=== PATIENT | male | born 1995 | race Caucasian/White ===

== ENCOUNTER 2016-11-23 13:08 | Emergency (ER) | payer MEDICAID, OTHER ==
[2016-11-21] MEDS: OLANZAPINE 5 MG TABLET PO SCH (17:10)
[2016-11-21] MEDS: FLUOXETINE HCL 20 MG CAPSULE PO SCH (17:10)
[2016-11-23] MEDS ORDERED: DIPH/PERTUSS(ACELL)/TETANUS VAC/PF 0.5 ML SYR (>=10YO) IM ONE (13:19)
[2016-11-23] MEDS ORDERED: NORMAL SALINE 1000 ML 1,000 ML IV PRN (13:20)
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
[2016-11-23] MEDS ORDERED: LIDOCAINE 1%/EPINEPHRINE INJ 20 ML VIAL INJ ONE (13:36)
[2016-11-23 14:16] LABS: ABSOLUTE EOSINOPHILS # (AUTO) 0.1 10^3/uL (0.0-0.6); ABSOLUTE LYMPHOCYTES (AUTO) 1.4 10^3/uL (0.5-4.7); ABSOLUTE MONOCYTES (AUTO) 0.5 10^3/uL (0.1-1.4); ABSOLUTE NEUT (AUTO) 3.8 10^3/uL (1.7-8.2); BASOPHILS % (AUTO) 0.2 % (0-2); EOSINOPHILS % (AUTO) 1.1 % (0-6); HEMATOCRIT 42.3 % (37.9-51.0); HEMOGLOBIN 14.8 g/dL (13.5-17.0); HGB HCT DIFFERENCE 2.1; LYMPHOCYTES % (AUTO) 24.7 % (13-45); MEAN CORPUSCULAR HGB CONC 35.1 g/dL (32.0-36.0); MEAN CORPUSCULAR VOLUME 88 fl (80-97); MONOCYTES % (AUTO) 8.6 % (3-13); RED BLOOD COUNT 4.78 10^6/uL (4.35-5.55); RED CELL DISTRIBUTION WIDTH 12.3 % (11.5-14.0); SEGMENTED NEUTROPHILS % (AUTO) 65.4 % (42-78); WHITE BLOOD COUNT 5.8 10^3/uL (4.0-10.5)
[2016-11-23 14:41] LABS: ALANINE AMINOTRANSFERASE 28 U/L (21-72); ALKALINE PHOSPHATASE 75 U/L (38-126); ANION GAP 10 (5-19); ASPARTATE AMINO TRANSFERASE 20 U/L (17-59); BILIRUBIN,TOTAL 0.5 mg/dL (0.2-1.3); BLOOD UREA NITROGEN 8 mg/dL (7-20); CALCIUM 9.5 mg/dL (8.4-10.2); CARBON DIOXIDE 28 mmol/L (22-30); CHLORIDE 105 mmol/L (98-107); CREATININE RESULT 0.85 mg/dL (0.52-1.25); GLUCOSE 95 mg/dL (75-110); POTASSIUM 4.2 mmol/L (3.6-5.0); SODIUM 142.6 mmol/L (137-145); TOTAL PROTEIN 6.9 g/dL (6.3-8.2)
[2016-11-23] MEDS ORDERED: FENTANYL CITRATE INJ/PF 100 MCG/2 ML AMPUL IV ONE (14:44)
[2016-11-23] MEDS ORDERED: FENTANYL CITRATE INJ/PF 100 MCG/2 ML AMPUL ONE (14:47)
[2016-11-23] MEDS ORDERED: CEFAZOLIN 1 GM/D5W RTU 50 ML IV ONE (15:36)
[2016-11-23 16:58] LABS: ABSOLUTE MONOCYTES (AUTO) 0.5 10^3/uL (0.1-1.4); ABSOLUTE NEUT (AUTO) 8.9 10^3/uL (1.7-8.2); BASOPHILS % (AUTO) 0.2 % (0-2); EOSINOPHILS % (AUTO) 0.1 % (0-6); HEMATOCRIT 38.7 % (37.9-51.0); HEMOGLOBIN 13.3 g/dL (13.5-17.0); HGB HCT DIFFERENCE 1.2; LYMPHOCYTES % (AUTO) 9.9 % (13-45); MEAN CORPUSCULAR HEMOGLOBIN 30.7 pg (27.0-33.4); MEAN CORPUSCULAR HGB CONC 34.4 g/dL (32.0-36.0); MEAN CORPUSCULAR VOLUME 89 fl (80-97); MONOCYTES % (AUTO) 4.4 % (3-13); RED BLOOD COUNT 4.34 10^6/uL (4.35-5.55); RED CELL DISTRIBUTION WIDTH 12.3 % (11.5-14.0); SEGMENTED NEUTROPHILS % (AUTO) 85.4 % (42-78); WHITE BLOOD COUNT 10.4 10^3/uL (4.0-10.5)
[2016-11-23 17:18] LABS: ALANINE AMINOTRANSFERASE 27 U/L (21-72); ALBUMIN 3.5 g/dL (3.5-5.0); ALCOHOL < 10 mg/dL (NONE DETECTED); ALKALINE PHOSPHATASE 66 U/L (38-126); ANION GAP 12 (5-19); ASPARTATE AMINO TRANSFERASE 16 U/L (17-59); BILIRUBIN,TOTAL 0.4 mg/dL (0.2-1.3); BLOOD UREA NITROGEN 7 mg/dL (7-20); CALCIUM 8.9 mg/dL (8.4-10.2); CARBON DIOXIDE 24 mmol/L (22-30); CHLORIDE 105 mmol/L (98-107); CREATININE RESULT 0.86 mg/dL (0.52-1.25); GLUCOSE 100 mg/dL (75-110); POTASSIUM 4.2 mmol/L (3.6-5.0); SODIUM 140.8 mmol/L (137-145)
[2016-11-23 17:20] LABS: APPEARANCE,URINE CLEAR; BILIRUBIN,URINE NEGATIVE (NEGATIVE); GLUCOSE, URINE NEGATIVE (NEGATIVE); KETONES,URINE NEGATIVE (NEGATIVE); LEUKOCYTE ESTERASE,URINE NEGATIVE (NEGATIVE); NITRITE,URINE NEGATIVE (NEGATIVE); PROTEIN,URINE NEGATIVE (NEGATIVE); URINE SPECIFIC GRAVITY 1.011; UROBILINOGEN,URINE NEGATIVE mg/dL (<2.0)
[2016-11-23 17:33] LABS: URINE BARBITURATES SCREEN NEGATIVE; URINE METHADONE SCREEN NEGATIVE; URINE PHENCYCLIDINE SCREEN NEGATIVE
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
[2016-11-23] MEDS ORDERED: DIVALPROEX SODIUM 500 MG TAB.SR.24H PO SCH (19:00)
[2016-11-23] MEDS: FLUOXETINE HCL 20 MG CAPSULE PO SCH (22:00)
[2016-11-23] MEDS: OLANZAPINE 5 MG TABLET PO SCH (22:00)
[2016-11-23] MEDS: BENZTROPINE MESYLATE 1 MG TABLET PO SCH (22:00)
--- NOTE | 2016-11-24 15:55 | EKG REPORT ---
SEVERITY:- ABNORMAL ECG - SINUS RHYTHM PROBABLE LEFT VENTRICULAR HYPERTROPHY LATERAL Q WAVES, PROBABLY NORMAL VARIATION ST ELEV, PROBABLE NORMAL EARLY REPOL PATTERN : Confirmed by: Iesha Seals 24-Nov-2016 15:55:01
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
--- NOTE | 2016-11-24 16:47 | ER Document Report ---
Doctor's Note Notes: 11/24/16 16:42 Rounds: Patient interviewed and chart reviewed. Vital signs all stable. Labs unremarkable. Laceration right forearm closed by Dr. Foster. Patient does not express any suicidal ideation at this time. Patient is believed to be stable for discharge or transfer. mental health assesed patient and does not feel he needs further care in the emergency department or as an inpatient at another [facility]. He is being discharged to follow up with Dr. Rhodes. Tosin Daigle MD 11/24/16 18:24 Patient was felt to be ready for discharge, but when Mother arrived to take him , he became difficult and agitated again. We determined that the patient had only received one Zyprexa 5 gm last night and none today and that he had not received any Depakote ordered BID that had been ordered last evening. Those meds
[2016-11-24] MEDS: BENZTROPINE MESYLATE 1 MG TABLET PO SCH (21:58)
[2016-11-25] MEDS: DIVALPROEX SODIUM 500 MG TAB.SR.24H PO SCH ×2 (07:51→18:01)
[2016-11-25] MEDS: OLANZAPINE 5 MG TABLET PO SCH ×2 (07:51→18:01)
--- NOTE | 2016-11-25 09:05 | PSYCHOLOGICAL NOTE ---
Psych Note - Psych Note Psych Note: Patient clinician conducted check in with patient patient stated that he feels "so-so." Patient identified his emotion yesterday when his mother came to pick him up stating "I got mad." He was unable to verbalize why. Patient states he still has that feeling inside him. Diagnosis: R/O 292.9 (F12.99) Unspecified Schizophrenia and other Psychotic Disorder 299.00 (F84.0) Autism Spectrum Disorder by History Impression\\plan: Patient is recommended to continue under IVC. Patient has not made significant improvement in disposition and is considered a risk to himself and others.
--- NOTE | 2016-11-25 10:32 | PDOC CONSULTATION ---
History of Present Illness Admission Date/PCP: ELDON GARRETT Patient complains of: Laceration and bleeding of the right forearm after punching a glass door. History of Present Illness: 21-year-old gentleman with psychiatric issues who punched a glass door and inadvertently cut his ulnar aspect of his mid forearm. He cut it deep into the muscle, some bleeding. At the ER to decompress the dressing and coagulation by general surgeon. General surgeon noted muscle injury and potential laceration of the tendon. I'll then to the ER to evaluate the laceration and help with the active bleeding of the forearm. They were concerned for an ulnar artery injury. Patient complains of paresthesias of the fifth and fourth digit. Has decrease motion second to pain because states he can wiggle his digits. Past Medical History Musculoskeltal Medical History: Reports: Arthritis - Juvenile rheumatoid Psychiatric Medical History: Reports: Attention Deficit Hyperactivity Disorder, Bipolar Disorder Past Surgical History Past Surgical History: Reports: Other - Eye surgery Social History Smoking Status: Never Smoker - Advance Directive Resuscitation Status: Full Code Family History Family History: Reviewed & Not Pertinent Parental Family History Reviewed: Yes Children Family History Reviewed: Yes Sibling(s) Family History Reviewed.: Yes Medication/Allergy Home Medications: Aripiprazole [Abilify 10 mg Tablet] 10 mg PO DAILY 05/25/15 Clonidine HCl [Catapres 0.1 mg Tablet] 0.1 mg PO Q8 05/25/15 Guanfacine HCl [Guanfacine HCl ER] 2 mg PO BID 05/25/15 Methylphenidate HCl [Methylphenidate ER] 36 mg PO DAILY 05/25/15 Methylphenidate HCl [Methylphenidate ER] 54 mg PO DAILY 05/25/15 Benztropine Mesylate [Benztropine Mesylate 2 mg Tablet] 2 mg PO BID #14 tab 03/06 Citalopram Hydrobromide [Celexa 40 mg Tablet] 1 tab PO DAILY #7 tablet 09/24/16 Divalproex Sodium [Depakote] 250 mg PO BID #30 tablet. 09/24/16 Risperidone [Risperdal 1 mg Tablet] 1 mg PO Q12 #14 tablet 09/24/16 Trazodone HCl 100 mg PO QHS #7 tablet 09/24/16 Benztropine Mesylate [Benztropine Mesylate 2 mg Tablet] 2 mg PO BID #60 tab Citalopram Hydrobromide [Celexa 40 mg Tablet] 1 tab PO DAILY #30 tablet Divalproex Sodium 250 mg PO BID #60 tablet. 10/08/16 Risperidone 1 mg PO Q12 #60 tablet 10/08/16 Trazodone HCl 100 mg PO QHS #30 tablet 10/08/16 Benztropine Mesylate [Cogentin 1 mg Tablet] 2 tab PO DAILY 11/23/16 Cephalexin Monohydrate [Keflex 500 mg Capsule] 500 mg PO QID #40 capsule Citalopram Hydrobromide [Celexa 40 mg Tablet] 1 tab PO DAILY 11/23/16 Divalproex Sodium [Depakote ER 250 mg Tablet] 11/23/16 Allergies/Adverse Reactions: No Known Allergies Allergy (Verified 09/24/16 12:14) Physical Exam Vital Signs: Temp Pulse Resp BP Pulse Ox 36.5 C 82 18 105/64 99 11/25/16 07:52 11/25/16 07:52 11/25/16 07:52 11/25/16 07:52 11/25/16 07:52 Intake & Output 11/24/16 11/25/16 11/26/16 06:59 06:59 06:59 Weight 83.915 kg General appearance: PRESENT: no acute distress Eye exam: PRESENT: EOMI. ABSENT: conjunctival injection, nystagmus Neurological exam: PRESENT: alert, awake, oriented to person, oriented to place , oriented to time Psychiatric exam: PRESENT: anxious Adult Front & Back Image: 1 - About a 2-3 cm transverse laceration on the midforearm on the ulnar aspect. We'll to visualize the cut tendon with muscle belly which I believe is the flexor carpi ulnaris. Do not see any further penetration or deep injury. Knee active bleeding was controlled by Marilyn and Suraj curz at this moment. He has paresthesias of the ulnar distribution of the fifth and fourth digits but able to flex and extend and abductor and the duct the digits. He has some sensation although altered. He has good capillary refill and good radial pulse. He had a dopplerable ulnar pulse done by the ER. Weak wrist flexion but still intact. Ulnar deviation is limited. Results Laboratory Results: 11/23/16 16:45 11/23/16 16:45 Assessment & Plan - Diagnosis (1) Laceration of forearm with tendon involvement Qualifiers: Encounter type: initial encounter Laterality: right Qualified Code(s): S51.811A - Laceration without foreign body of right forearm, initial encounter; S56.921A - Laceration of unspecified muscles, fascia and tendons at forearm level, right arm, initial encounter Is this a current diagnosis for this admission?: Yes (2) Tendon laceration Is this a current diagnosis for this admission?: Yes - Plan Summary Plan Summary: 21-year-old gentleman who after punching a glass door had a laceration to his right volar ulnar aspect forearm. Bleeding was controlled and was likely a branch of the muscle belly but not ulnar artery itself. Hemostasis has been obtained. Wound was irrigated and approximated by general surgeon. Likely patient has a flexor carpi ulnaris muscle/tendon injury. Patient to have a compressive dressing and follow-up in the office for potential tendon repair or exploration of the wound. I told him that its likely at the musculotendinous junction and very likely to be repaired although we can discuss options and the office. Patient most likely will be admitted for psychiatric reasons and they can call me for any questions of the wound the meantime. All the nerve may have been partially injured and although functioning. Hopefully once the swelling was down and if redo and expiration we can evaluate for the nerve.
[2016-11-25] MEDS ORDERED: FLUOXETINE HCL 20 MG CAPSULE PO ONE (11:50)
--- NOTE | 2016-11-25 17:01 | ER Document Report ---
Doctor's Note Notes: 11/25/16 16:56 Rounds: Chart reviewed and patient interviewed. Patient remains in the emergency department, trying to get his mental issues under control with medications. He has Depakote and Zyprexa ordered, but apparently, according to his MAR, he has not been getting these medications as prescribed. He does seem to be calmer today. Patient obviously did not get discharged yesterday as was planned. He will likely need to be discharged on his current regimen of Zyprexa and Depakote along with Cogentin with outpatient follow-up. Regarding the patient's arm wound, from the notes in the chart, the patient was seen earlier today by the orthopedic physician fire prevention engineer, Dr. Cooper. From his note, it appears that the wound is stable and that he is going to follow-up in the office with them to determine if any further surgical care is necessary for this wound that apparently includes muscle. From reading his note, it appears that the patient needs to be discharged to follow-up in the office in a week. Tosin Daigle M.D.
[2016-11-26] MEDS: OLANZAPINE 5 MG TABLET PO SCH (09:16)
[2016-11-26] MEDS: DIVALPROEX SODIUM 500 MG TAB.SR.24H PO SCH (09:17)
[2016-11-26] MEDS ORDERED: FLUOXETINE HCL 20 MG CAPSULE PO SCH (10:00)
[2016-11-26 13:10] VITALS: BP 126/76
== END 2016-11-26 13:18 | disposition home or self-care (01) ==
LOC: ER 13:08
DX: S56.922A Laceration of unspecified muscles, fascia and tendons at forearm level, left arm, initial encounter (principal); S51.811A Laceration without foreign body of right forearm, initial encounter; W25.XXXA Contact with sharp glass, initial encounter; Y93.89 Activity, other specified; F31.9 Bipolar disorder, unspecified; F20.9 Schizophrenia, unspecified; R45.851 Suicidal ideations; R20.2 Paresthesia of skin; R45.4 Irritability and anger; Z91.14 Patient's other noncompliance with medication regimen
CPT/HCPCS: 93005; 99285; 90471; 96375; 96365; 36415; 80307 ×4; 85025; 80053; 81001; 80164; 90715; 93010; 13121; J3490 ×13; J0690; J3010

== ENCOUNTER 2017-02-23 20:09 | Emergency (ER) | payer MEDICAID ==
[2017-02-23 20:53] LABS: ABSOLUTE BASOPHILS # (AUTO) 0.1 10^3/uL (0.0-0.2); ABSOLUTE EOSINOPHILS # (AUTO) 0.4 10^3/uL (0.0-0.6); ABSOLUTE LYMPHOCYTES (AUTO) 2.2 10^3/uL (0.5-4.7); ABSOLUTE MONOCYTES (AUTO) 0.8 10^3/uL (0.1-1.4); ABSOLUTE NEUT (AUTO) 4.3 10^3/uL (1.7-8.2); BASOPHILS % (AUTO) 0.7 % (0-2); EOSINOPHILS % (AUTO) 5.1 % (0-6); HEMATOCRIT 45.7 % (37.9-51.0); HEMOGLOBIN 15.6 g/dL (13.5-17.0); HGB HCT DIFFERENCE 1.1; LYMPHOCYTES % (AUTO) 28.4 % (13-45); MEAN CORPUSCULAR HEMOGLOBIN 29.8 pg (27.0-33.4); MEAN CORPUSCULAR HGB CONC 34.2 g/dL (32.0-36.0); MEAN CORPUSCULAR VOLUME 87 fl (80-97); MONOCYTES % (AUTO) 9.9 % (3-13); RED BLOOD COUNT 5.25 10^6/uL (4.35-5.55); RED CELL DISTRIBUTION WIDTH 12.7 % (11.5-14.0); SEGMENTED NEUTROPHILS % (AUTO) 55.9 % (42-78); WHITE BLOOD COUNT 7.7 10^3/uL (4.0-10.5)
[2017-02-23 21:10] LABS: ALANINE AMINOTRANSFERASE 29 U/L (21-72); ALBUMIN 4.4 g/dL (3.5-5.0); ALKALINE PHOSPHATASE 66 U/L (38-126); ANION GAP 14 (5-19); ASPARTATE AMINO TRANSFERASE 21 U/L (17-59); BILIRUBIN,DIRECT 0.2 mg/dL (0.0-0.4); BILIRUBIN,TOTAL 0.4 mg/dL (0.2-1.3); BLOOD UREA NITROGEN 10 mg/dL (7-20); CARBON DIOXIDE 24 mmol/L (22-30); CHLORIDE 104 mmol/L (98-107); CREATININE RESULT 1.17 mg/dL (0.52-1.25); GLUCOSE 111 mg/dL (75-110); POTASSIUM 4.4 mmol/L (3.6-5.0); SODIUM 141.5 mmol/L (137-145); TOTAL PROTEIN 7.5 g/dL (6.3-8.2)
[2017-02-23 21:14] LABS: ALCOHOL < 10 mg/dL (NONE DETECTED)
--- NOTE | 2017-02-23 21:46 | ER Document Report ---
ED General - General Chief Complaint: Psych Problem Stated Complaint: PSYCH EVALUATION Cannot obtain history due to: Mentally challenged Notes: Patient is a 21-year-old male with past medical history of bipolar disorder and apparently autism who presents with homicidal ideation with a plan to murder his mother using a brick. Patient states that the trigger is her "smirking at me all of the time". He does live with the mother. States he's like this in the past but never to this degree of severity. States he takes medications in him of which she cannot recall but has been taking them regularly. Denies any symptoms to improve his symptoms. He states states his symptoms seem to improve by being away from his mother. States that if he were discharged back to the house he cannot guarantee his mother would be safe. He denies any acute medical complaints. Denies any alcohol or drug use. TRAVEL OUTSIDE OF THE [place] IN LAST 30 DAYS: No - Related Data Allergies/Adverse Reactions: No Known Allergies Allergy (Verified 02/23/17 20:22) Past Medical History - General Information source: Patient - Social History Smoking Status: Never Smoker Frequency of alcohol use: None Drug Abuse: None Lives with: Parents Family History: Reviewed & Not Pertinent Patient has suicidal ideation: No Patient has homicidal ideation: Yes Renal/ Medical History: Denies: Hx Peritoneal Dialysis Musculoskeltal Medical History: Reports Hx Arthritis - Juvenile rheumatoid Psychiatric Medical History: Reports: Hx Attention Deficit Hyperactivity Disorder, Hx Bipolar Disorder, Hx Schizophrenia Past Surgical History: Reports: Other - Eye surgery - Immunizations Immunizations up to date: No Hx Diphtheria, Pertussis, Tetanus Vaccination: Yes Review of Systems - Review of Systems Notes: Constitutional: Negative for fever. HENT: Negative for sore throat. Eyes: Negative for visual changes. Cardiovascular: Negative for chest pain. Respiratory: Negative for shortness of breath. Gastrointestinal: Negative for abdominal pain, vomiting or diarrhea. Genitourinary: Negative for dysuria. Musculoskeletal: Negative for back pain. Skin: Negative for rash. Neurological: Negative for headaches, weakness or numbness. 10 point ROS negative except as marked above and in HPI. Physical Exam - Vital signs Vitals: Temp Pulse Resp BP Pulse Ox 98.4 F 107 H 18 147/104 H 95 02/23/17 20:24 02/23/17 20:24 02/23/17 20:24 02/23/17 20:24 02/23/17 20:24 Interpretation: Hypertensive, Tachycardic Notes: PHYSICAL EXAMINATION: GENERAL: Well-appearing, well-nourished and in no acute distress. HEAD: Atraumatic, normocephalic. EYES: Pupils equal round and reactive to light, extraocular movements intact, sclera anicteric, conjunctiva are normal. ENT: nares patent, oropharynx clear without exudates. Moist mucous membranes. NECK: Normal range of motion, supple without lymphadenopathy LUNGS: Breath sounds clear to auscultation bilaterally and equal. No wheezes rales or rhonchi. HEART: Regular rate and rhythm without murmurs ABDOMEN: Soft, nontender, normoactive bowel sounds. No guarding, no rebound. No masses appreciated. EXTREMITIES: Normal range of motion, no pitting or edema. No cyanosis. NEUROLOGICAL: No focal neurological deficits. Moves all extremities spontaneously and on command. PSYCH: Normal mood, normal affect. SKIN: Warm, Dry, normal turgor, no rashes or lesions noted. Course - Re-evaluation Re-evalutation: 02/23/17 21:44 Patient presents with homicidal ideation with a plan to kill his mother using a brick. Patient has a history of schizophrenia and autism. He states that the trigger is being around his mother and she does live with her. States that if he was discharged back home he believes he would kill her. Patient is in imminent danger to his mother and has been placed on IVC. Medical screening exam laboratories are otherwise unremarkable. He denies any acute medical complaints. He is medically cleared for evaluation by psychiatry in the morning. - Vital Signs Vital signs: Temp Pulse Resp BP Pulse Ox 98.4 F 107 H 18 147/104 H 95 02/23/17 20:24 02/23/17 20:24 02/23/17 20:24 02/23/17 20:24 02/23/17 20:24 - Laboratory Result Diagrams: 02/23/17 20:42 02/23/17 20:42 Laboratory results interpreted by me: 02/23/17 02/23/17 20:42 22:05 Glucose 111 H Urine Protein 30 H Urine Urobilinogen 2.0 H Ur Leukocyte Esterase TRACE H Salicylates < 1.0 L Acetaminophen < 10 L - EKG Interpretation by Me Additional EKG results interpreted by me: 02/23/17 21:46 Sinus tachycardia. Rate 101. No ST elevations or depressions. QTC is 436. Discharge - Discharge Clinical Impression: Homicidal ideation Condition: Fair Disposition: PSYCH HOSP/UNIT
[2017-02-23 22:41] LABS: AMORPHOUS SEDIMENT,URINE TRACE /HPF; APPEARANCE,URINE TURBID; BILIRUBIN,URINE NEGATIVE (NEGATIVE); GLUCOSE, URINE NEGATIVE (NEGATIVE); KETONES,URINE NEGATIVE (NEGATIVE); LEUKOCYTE ESTERASE,URINE TRACE (NEGATIVE); NITRITE,URINE NEGATIVE (NEGATIVE); PROTEIN,URINE 30 mg/dL (NEGATIVE); URINE SPECIFIC GRAVITY 1.018
[2017-02-23 22:48] LABS: URINE BARBITURATES SCREEN NEGATIVE; URINE METHADONE SCREEN NEGATIVE; URINE OPIATES LOW NEGATIVE; URINE PHENCYCLIDINE SCREEN NEGATIVE
--- NOTE | 2017-02-24 15:36 | EKG REPORT ---
SEVERITY:- ABNORMAL ECG - SINUS TACHYCARDIA CONSIDER LEFT VENTRICULAR HYPERTROPHY : Confirmed by: Annamarie Rg MD 24-Feb-2017 15:35:27
[2017-02-24] MEDS ORDERED: HYDROXYZINE PAMOATE 50 MG CAPSULE PO PRN (16:59)
[2017-02-24] MEDS ORDERED: FLUOXETINE HCL 20 MG CAPSULE PO SCH (17:00)
--- NOTE | 2017-02-24 17:50 | ER Document Report ---
Doctor's Note Notes: 02/24/17 17:49 Rounds: Chart reviewed and patient interviewed. Patient seems pleasant and cooperative and talkative and answers questions appropriately. Says he's feeling better. Vital signs are normal except his blood pressure was 98/55, but it was back to a normal reading more recently. Lab studies were all normal. Patient appears to be medically stable for transfer or discharge. Patient has been started on multiple medications (Depakote, Prozac, Zyprexa, clonidine, and Vistaril as needed. Tosin Daigle M.D.
[2017-02-24] MEDS: CLONIDINE HCL 0.1 MG TABLET PO SCH (18:06)
[2017-02-24] MEDS: OLANZAPINE 5 MG TABLET PO SCH (18:07)
[2017-02-24] MEDS ORDERED: BENZTROPINE MESYLATE 1 MG TABLET PO SCH (22:00)
[2017-02-24] MEDS ORDERED: DIVALPROEX SODIUM 125 MG CAP.SPRINK PO SCH (22:00)
--- NOTE | 2017-02-25 07:24 | PSYCHOLOGICAL NOTE ---
Psych Note - Psych Note Psych Note: Patient presented to [facility] ED with past medical history of bipolar disorder and apparently autism who presents with homicidal ideation with a plan to murder his mother using a brick. Patient states that the trigger is her "smirking at me all of the time". He does live with the mother. States he's like this in the past but never to this degree of severity. States he takes medications in him of which she cannot recall but has been taking them regularly. Patient states that he asked his mother to call mobile crisis because he wanted to hit her with a brick. He continued to disclose his mom made him mad but he does not feel like that anymore. He states "I feel like a million bucks." Patient is alert and orientation to person, place, time and circumstance. Mood is euthymic with congruent affect. Patient denies suicidal and homicidal ideation; no delusions are noted. Thought process is organized and linear. Conversation speech is at times difficult to understand. Eye contact is well maintained. Intellectual abilities are low average range. Attention and concentration are good. Insight, judgment, impulse control appear to be historically poor and affected by diagnoses; however clinician notes the patient was able to verbalize that he was upset and requested assistance without acting on his thoughts of harming his mother. Patient is oriented to person, place, time and circumstance. Patient's mood is euthymic with congruent affect. Patient denied suicidal/homicidal ideation. Patient denies auditory and visual hallucinations; at this time, no responses to internal stimuli were observed. Thought process organized and linear. Conversational speech was within normal rate, tone, and prosody. Eye contact was fair. Intellectual abilities appear to be low average. Attention and concentration appear to be fair. Diagnosis: R/O 292.9 (F12.99) Unspecified Schizophrenia and other Psychotic Disorder 299.00 (F84.0) Autism Spectrum Disorder by History Impression plan: Patient is recommended to continue under IVC for continued observation. Dr. Soriano was consulted on the care and management of this patient. Attending physician is in agreement with recommendations and disposition.
[2017-02-25] MEDS ORDERED: FLUOXETINE HCL 20 MG CAPSULE PO SCH (08:00)
[2017-02-25] MEDS ORDERED: DIVALPROEX SODIUM 125 MG CAP.SPRINK PO SCH (08:00)
[2017-02-25] MEDS: OLANZAPINE 5 MG TABLET PO SCH ×2 (10:04→17:57)
--- NOTE | 2017-02-25 11:17 | ER Document Report ---
Doctor's Note Notes: 02/25/17 11:16 Rounds: Chart reviewed and patient interviewed. Patient has no complaints and says he feels fine. Vital signs remained normal. No additional lab studies to review. Patient appears medically stable for transfer or discharge. Tosin Daigle M.D.
[2017-02-25 14:52] VITALS: BP 126/86
[2017-02-25] MEDS: CLONIDINE HCL 0.1 MG TABLET PO SCH (17:58)
--- NOTE | 2017-02-25 18:22 | PSYCHOLOGICAL NOTE ---
Psych Note - Psych Note Psych Note: Patient presented to [facility] ED with past medical history of bipolar disorder and apparently autism who presents with homicidal ideation with a plan to murder his mother using a brick. Patient states that the trigger is her "smirking at me all of the time". He does live with the mother. States he's like this in the past but never to this degree of severity. States he takes medications in him of which she cannot recall but has been taking them regularly. Patient states that he is feeling good. He continued to state that he would like to go home because he has to work. 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 Patient disclosed that he mother gets off of work at one or two today. Patient's mother agrees to come to ED to discuss discharge plan. She confirms the patient verbalized his thoughts and feels and requested his mother to call mobile crisis. Upon arrive to [facility] ED, pateint's mother states she can see the patient has improved. Diagnosis: R/O 292.9 (F12.99) Unspecified Schizophrenia and other Psychotic Disorder 299.00 (F84.0) Autism Spectrum Disorder by History Impression plan: Patient is recommended to rescind IVC and is considered psychologically cleared for discharge. Patient states he no longer feels anger. Patient does not meet IVC criteria per [place] GS 122C. Patient's mother confirms the patient verbalized his thoughts and feelings and requested his mother to call mobile crisis. Clinician notes this is significant improvement the patient's previous behaviors where he reacted physically. Patient has outpatient oss architect for mental health. Dr. Soriano was consulted on the care and management of this patient. Attending physician is in agreement with recommendations and disposition.
== END 2017-02-25 18:31 | disposition home or self-care (01) ==
LOC: ER 20:09
DX: R45.850 Homicidal ideations (principal); F20.9 Schizophrenia, unspecified; F84.0 Autistic disorder
CPT/HCPCS: 93005; 99285; 36415; 80307 ×4; 85025; 80053; 81001; 80164; 93010; J3490 ×4

== ENCOUNTER 2018-02-02 11:14 | Emergency (ER) | payer MEDICAID | END 2018-02-02 12:42 | disposition left against medical advice (07) | LOC: ER 11:14 | DX: Z53.21 Procedure and treatment not carried out due to patient leaving prior to being seen by health care provider (principal) ==

== ENCOUNTER → 2019-02-13 | Outpatient (CLI) | payer MEDICAID ==
[2019-02-13 11:45] LABS: ABSOLUTE EOSINOPHILS # (AUTO) 0.1 10^3/uL (0.0-0.6); ABSOLUTE LYMPHOCYTES (AUTO) 1.8 10^3/uL (0.5-4.7); ABSOLUTE MONOCYTES (AUTO) 0.3 10^3/uL (0.1-1.4); ABSOLUTE NEUT (AUTO) 3.1 10^3/uL (1.7-8.2); BASOPHILS % (AUTO) 0.6 % (0-2); EOSINOPHILS % (AUTO) 2.3 % (0-6); HEMATOCRIT 40.5 % (37.9-51.0); HEMOGLOBIN 13.7 g/dL (13.5-17.0); LYMPHOCYTES % (AUTO) 33.7 % (13-45); MEAN CORPUSCULAR HEMOGLOBIN 28.2 pg (27.0-33.4); MEAN CORPUSCULAR HGB CONC 33.9 g/dL (32.0-36.0); MEAN CORPUSCULAR VOLUME 83 fl (80-97); MONOCYTES % (AUTO) 6.3 % (3-13); PLATELET COUNT 294 10^3/uL (150-450); RED BLOOD COUNT 4.86 10^6/uL (4.35-5.55); RED CELL DISTRIBUTION WIDTH 12.5 % (11.5-14.0); SEGMENTED NEUTROPHILS % (AUTO) 57.1 % (42-78); TOTAL CELLS COUNTED % (AUTO) 100 %; WHITE BLOOD COUNT 5.5 10^3/uL (4.0-10.5)
[2019-02-13 12:02] LABS: ALANINE AMINOTRANSFERASE 25 U/L (21-72); ALBUMIN 4.2 g/dL (3.5-5.0); ALKALINE PHOSPHATASE 85 U/L (38-126); ANION GAP 11 (5-19); ASPARTATE AMINO TRANSFERASE 19 U/L (17-59); BILIRUBIN,DIRECT 0.3 mg/dL (0.0-0.4); BILIRUBIN,TOTAL 0.8 mg/dL (0.2-1.3); BLOOD UREA NITROGEN 11 mg/dL (7-20); CALCIUM 10.3 mg/dL (8.4-10.2); CARBON DIOXIDE 26 mmol/L (22-30); CHLORIDE 101 mmol/L (98-107); GLUCOSE 100 mg/dL (75-110); POTASSIUM 4.2 mmol/L (3.6-5.0); TOTAL PROTEIN 6.9 g/dL (6.3-8.2)
[2019-02-13 12:58] LABS: APPEARANCE,URINE CLEAR; BILIRUBIN,URINE NEGATIVE (NEGATIVE); COLOR,URINE YELLOW; GLUCOSE, URINE NEGATIVE (NEGATIVE); KETONES,URINE NEGATIVE (NEGATIVE)
[2019-02-13 12:59] LABS: ADD MANUAL MICROSCOPIC YES; HYALINE CASTS, URINE 0-1 /LPF; LEUKOCYTE ESTERASE,URINE SMALL (NEGATIVE); NITRITE,URINE NEGATIVE (NEGATIVE); PROTEIN,URINE NEGATIVE (NEGATIVE); WBC,URINE 0-1 /HPF
[2019-02-13 13:00] LABS: BACTERIA,URINE 1+ /HPF
== END ==
LOC: OD 11:03
PROVIDERS: ATTEND Internal Medicine Nephrology
DX: N18.3 Chronic kidney disease, stage 3 (moderate) (principal)
CPT/HCPCS: 36415; 80053; 81001; 84153; 84443; 85025

== ENCOUNTER → 2019-03-30 | Outpatient (CLI) | payer MEDICAID ==
[2019-03-30 12:55] LABS: ABSOLUTE LYMPHOCYTES (AUTO) 1.3 10^3/uL (0.5-4.7); ABSOLUTE MONOCYTES (AUTO) 0.3 10^3/uL (0.1-1.4); ABSOLUTE NEUT (AUTO) 3.1 10^3/uL (1.7-8.2); BASOPHILS % (AUTO) 0.4 % (0-2); HEMATOCRIT 37.8 % (37.9-51.0); HEMOGLOBIN 12.5 g/dL (13.5-17.0); LYMPHOCYTES % (AUTO) 27.1 % (13-45); MEAN CORPUSCULAR HEMOGLOBIN 26.8 pg (27.0-33.4); MEAN CORPUSCULAR HGB CONC 33.1 g/dL (32.0-36.0); MEAN CORPUSCULAR VOLUME 81 fl (80-97); MONOCYTES % (AUTO) 6.9 % (3-13); PLATELET COUNT 241 10^3/uL (150-450); RED BLOOD COUNT 4.67 10^6/uL (4.35-5.55); RED CELL DISTRIBUTION WIDTH 12.3 % (11.5-14.0); SEGMENTED NEUTROPHILS % (AUTO) 64.6 % (42-78); TOTAL CELLS COUNTED % (AUTO) 100 %; WHITE BLOOD COUNT 4.9 10^3/uL (4.0-10.5)
[2019-03-30 13:15] LABS: ALANINE AMINOTRANSFERASE 34 U/L (21-72); ALBUMIN 4.1 g/dL (3.5-5.0); ALKALINE PHOSPHATASE 77 U/L (38-126); ASPARTATE AMINO TRANSFERASE 24 U/L (17-59); BILIRUBIN,DIRECT 0.3 mg/dL (0.0-0.4); BILIRUBIN,TOTAL 0.5 mg/dL (0.2-1.3); CHOLESTEROL 129.56 mg/dL (0-200); TOTAL PROTEIN 6.4 g/dL (6.3-8.2); TRIGLYCERIDES 81 mg/dL (<150)
[2019-03-30 13:19] LABS: ANION GAP 14 (5-19); BLOOD UREA NITROGEN 19 mg/dL (7-20); CALCIUM 9.7 mg/dL (8.4-10.2); CARBON DIOXIDE 23 mmol/L (22-30); CHLORIDE 101 mmol/L (98-107); GLUCOSE 115 mg/dL (75-110); POTASSIUM 4.6 mmol/L (3.6-5.0)
[2019-03-30 13:28] LABS: DIRECT LDL 78 mg/dL (<100)
[2019-03-30 13:34] LABS: FREE T4 (FREE THYROXINE) 1.94 ng/dL (0.78-2.19)
[2019-03-30 13:48] LABS: THYROID STIMULATING HORMONE 3.06 uIU/mL (0.47-4.68)
== END ==
LOC: OD 12:10
PROVIDERS: ATTEND Psychiatry & Neurology Psychiatry
DX: I12.9 Hypertensive chronic kidney disease with stage 1 through stage 4 chronic kidney disease, or unspecified chronic kidney disease (principal); N18.3 Chronic kidney disease, stage 3 (moderate); F25.1 Schizoaffective disorder, depressive type; Z79.899 Other long term (current) drug therapy
CPT/HCPCS: 36415; 80048; 80061; 80076; 83036; 84439; 84443; 85025

== ENCOUNTER 2019-04-07 09:01 | Emergency (ER) | payer MEDICAID ==
--- NOTE | 2019-04-07 09:14 | ER Document Report ---
ED Medical Screen (RME) - General Chief Complaint: Flank Pain Stated Complaint: BACK PAIN Time Seen by Provider: 04/07/19 09:07 Primary Care Provider: ROSALINA PARRA MD [Primary Care Provider] - Follow up as needed Mode of Arrival: Ambulatory Information source: Patient, Parent Notes: 23-year-old male presented to ED for bilateral flank pain. He states he was called by his primary doctor that his kidney function was worse than it has been. He states his labs were bad and he needed to come to the emergency room and be examined. He states he only has one kidney and mom thinks it is his right. He was born with one kidney. Mom states he has been falling a lot frequently and that he has lost a whole lot of weight over the last month. Patient does have kidney disease juvenile rheumatoid arthritis schizophrenia ADHD bipolar anxiety and depression. Patient is alert oriented respirations regular and unlabored walks with a steady gait at this time. I have greeted and performed a rapid initial assessment of this patient. A comprehensive ED assessment and evaluation of the patient, analysis of test results and completion of medical decision making process will be conducted by an additional ED providers. Dictation of this chart was performed using voice recognition software; therefore, there may be some unintended grammatical errors. TRAVEL OUTSIDE OF THE [place] IN LAST 30 DAYS: No - Related Data Allergies/Adverse Reactions: No Known Allergies Allergy (Verified 04/07/19 09:04) Past Medical History Renal/ Medical History: Denies: Hx Peritoneal Dialysis Musculoskeltal Medical History: Reports Hx Arthritis - Juvenile rheumatoid Psychiatric Medical History: Reports: Hx Attention Deficit Hyperactivity Disorder, Hx Bipolar Disorder, Hx Schizophrenia Past Surgical History: Reports: Other - Eye surgery - Immunizations Immunizations up to date: No Hx Diphtheria, Pertussis, Tetanus Vaccination: Yes Doctor's Discharge - Discharge Referrals: ROSALINA PARRA MD [Primary Care Provider] - Follow up as needed
[2019-04-07 09:55] LABS: ABSOLUTE EOSINOPHILS # (AUTO) 0.1 10^3/uL (0.0-0.6); ABSOLUTE LYMPHOCYTES (AUTO) 2.3 10^3/uL (0.5-4.7); ABSOLUTE MONOCYTES (AUTO) 0.5 10^3/uL (0.1-1.4); BASOPHILS % (AUTO) 0.5 % (0-2); EOSINOPHILS % (AUTO) 1.4 % (0-6); HEMATOCRIT 39.7 % (37.9-51.0); LYMPHOCYTES % (AUTO) 29.1 % (13-45); MEAN CORPUSCULAR HEMOGLOBIN 26.9 pg (27.0-33.4); MEAN CORPUSCULAR HGB CONC 32.8 g/dL (32.0-36.0); MEAN CORPUSCULAR VOLUME 82 fl (80-97); MONOCYTES % (AUTO) 5.8 % (3-13); RED BLOOD COUNT 4.83 10^6/uL (4.35-5.55); RED CELL DISTRIBUTION WIDTH 12.8 % (11.5-14.0); SEGMENTED NEUTROPHILS % (AUTO) 63.2 % (42-78); TOTAL CELLS COUNTED % (AUTO) 100 %; WHITE BLOOD COUNT 7.9 10^3/uL (4.0-10.5)
[2019-04-07 10:05] LABS: ALANINE AMINOTRANSFERASE 51 U/L (21-72); ALBUMIN 4.3 g/dL (3.5-5.0); ALKALINE PHOSPHATASE 88 U/L (38-126); ANION GAP 16 (5-19); ASPARTATE AMINO TRANSFERASE 34 U/L (17-59); BILIRUBIN,DIRECT 0.4 mg/dL (0.0-0.4); BILIRUBIN,TOTAL 0.8 mg/dL (0.2-1.3); BLOOD UREA NITROGEN 19 mg/dL (7-20); CALCIUM 10.3 mg/dL (8.4-10.2); CARBON DIOXIDE 22 mmol/L (22-30); CHLORIDE 102 mmol/L (98-107); GLUCOSE 93 mg/dL (75-110); LIPASE 48.2 U/L (23-300); POTASSIUM 4.2 mmol/L (3.6-5.0); SODIUM 139.9 mmol/L (137-145); TOTAL PROTEIN 7.1 g/dL (6.3-8.2)
[2019-04-07 10:06] LABS: APPEARANCE,URINE SLIGHTLY-CLOUDY; BILIRUBIN,URINE NEGATIVE (NEGATIVE); COLOR,URINE YELLOW; GLUCOSE, URINE NEGATIVE (NEGATIVE); KETONES,URINE NEGATIVE (NEGATIVE); LEUKOCYTE ESTERASE,URINE TRACE (NEGATIVE); NITRITE,URINE NEGATIVE (NEGATIVE); PROTEIN,URINE NEGATIVE (NEGATIVE); URINE SPECIFIC GRAVITY 1.013
[2019-04-07 10:20] LABS: URINE AMPHETAMINES SCREEN NEGATIVE; URINE BARBITURATES SCREEN NEGATIVE; URINE BENZODIAZEPINES SCREEN NEGATIVE; URINE COCAINE SCREEN NEGATIVE; URINE MARIJUANA (THC) SCREEN NEGATIVE; URINE METHADONE SCREEN NEGATIVE; URINE PHENCYCLIDINE SCREEN NEGATIVE
[2019-04-07 10:24] LABS: PLATELET COUNT 278 10^3/uL (150-450)
--- NOTE | 2019-04-07 11:31 | ER Document Report ---
ED General - General Chief Complaint: Flank Pain Stated Complaint: BACK PAIN Time Seen by Provider: 04/07/19 09:07 Primary Care Provider: ROSALINA PARRA MD [Primary Care Provider] - Follow up as needed Mode of Arrival: Ambulatory Notes: Patient is here because of some problem with his kidneys. Patient sees Dr. Juan Molina, local chemical sprayer, and had a scheduled appointment yesterday to review lab work that have been drawn the week earlier. For some reason, Dr. Molina's office staff referred the patient to the emergency department and told them to go over there yesterday. Patient and family decided not to go yesterday but to come today. They do not know why. They do tell me that his blood pressure was 70/81, but when questioned about the numbers being switched, mother says that must of been 81/70. Patient's lab work from a week ago showed a creatinine of 1.88. Patient has not been acutely ill in any way. He has a history of schizophrenia and bipolar disorder and PTSD. He is on medications, Rexulti and olanzapine. He also is on lisinopril for his blood pressure and clonidine 0.2 mg at bedtime for sleeping. Patient and family relates that he has been having difficulty with his balance for over a year. Patient describes it as "leaning to his left". Family relates that over the past few months, patient is actually falling and is done so several times. Patient is being seen by a local urgent care for this problem. Family says that he is trying to get Medicaid to pay for a CT scan and other studies. Patient does not have any nausea or vomiting. Denies any chest pain. Denies headache. Denies recent illness or fever. TRAVEL OUTSIDE OF THE [place] 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 EENT: Denies eye, ear, nose or mouth or throat pain or other symptoms. CARDIOVASCULAR: Denies chest pain. RESPIRATORY: Denies cough, chest congestion, or shortness of breath. GASTROINTESTINAL: Denies abdominal pain or nausea, vomiting, or diarrhea. GENITOURINARY: Denies difficulty or painful urinating, urinary frequency, blood in urine. MUSCULOSKELETAL: Denies back or neck pain. Denies joint pain or swelling. SKIN: Denies rash or skin lesions. NEUROLOGICAL: Denies LOC or altered mental status. Denies sensory loss or motor deficits. ALL OTHER SYSTEMS REVIEWED AND NEGATIVE. Physical Exam - Vital signs Vitals: Temp Pulse Resp BP Pulse Ox 98.2 F 126 H 16 101/65 98 04/07/19 09:09 04/07/19 09:09 04/07/19 09:09 04/07/19 09:09 04/07/19 09:09 Interpretation: Normal, Tachycardic - 126 in triage Notes: PHYSICAL EXAMINATION: GENERAL: Well-appearing, in no acute distress. HEAD: Atraumatic, normocephalic. EYES: Pupils equal round and reactive to light, extraocular movements intact. ENT: oropharynx clear without exudates. Moist mucous membranes. NECK: Normal range of motion, supple. LUNGS: Breath sounds clear and equal bilaterally. HEART: Regular rate and rhythm without murmurs. Heart rate 100 radial pulse by me at bedside ABDOMEN: Soft, nontender. No guarding or rebound. No masses. BACK: No tenderness throughout entire back. EXTREMITIES: Normal range of motion without pain. NEUROLOGICAL: Normal speech, normal gait. Patient was able to stand without assistance of walker throughout the emergency department. He was reweighed and revitaled. Normal sensory, motor, and reflex exams. Awake, alert, and oriented x3. Cranial nerves normal. PSYCH: Normal mood, normal affect. SKIN: Warm, dry, no rashes. Course - Re-evaluation Re-evalutation: 04/07/19 12:01 Patient remained stable throughout his stay. Just before discharge, we did discharge vital signs and his blood pressure was in the systolic 80s. We got him up and walking around the emergency department his blood pressure was then 100/65. He was never tachycardic after being placed in the room. I think the patient is having hypotensive episodes probably due to his blood pressure medications. There is no evidence of any infection in his urine or blood work. There is no significant blood abnormality. He is not significantly anemic. I have advised the patient and family that he should stop taking his lisinopril and his clonidine until they are rechecked by Dr. Molina and advised on whether to continue taking them. I went over all of his lab and pointed out that the patient's renal function appears to be stable without any significant change in his creatinine. - Vital Signs Vital signs: Temp Pulse Resp BP Pulse Ox 98.2 F 122 H 18 100/63 100 04/07/19 09:09 04/07/19 11:28 04/07/19 11:27 04/07/19 11:28 04/07/19 11:27 - Laboratory Result Diagrams: 04/07/19 09:24 04/07/19 09:24 Laboratory results interpreted by me: 04/07/19 04/07/19 04/07/19 09:24 09:24 09:24 Hgb 13.0 L MCH 26.9 L Creatinine 1.86 H Est GFR ( Amer) 54 L Est GFR (Non-Af Amer) 45 L Calcium 10.3 H Urine Urobilinogen 4.0 H Ur Leukocyte Esterase TRACE H Discharge - Discharge Clinical Impression: Renal insufficiency, mild, Hypotension Condition: Stable Disposition: HOME, SELF-CARE Additional Instructions: Hypotension Your blood pressure is low. Low blood pressure can make you feel weak, lightheaded, and even make you pass out. Low blood pressure can be caused by dehydration or blood loss. Problems with the heart, kidneys, or blood vessels can cause hypotension. Certain medications can make your blood pressure abnormally low. Infection can lower blood pressure. In many cases, the person is totally healthy, but for unknown reasons, the blood pressure falls when they stand up. This is called benign orthostatic hypotension. The treatment of low blood pressure depends on the severity of the symptoms, and on the underlying cause. Sometimes it's not possible to identify a cause. At this time, it doesn't appear that the problem is serious enough to require hospitalization. Medicines that could be contributing to the problem can be withheld or reduced in dosage if your doctor approves. Get plenty of fluids. Eat a healthy diet. Be careful to stand up slowly. If you feel suddenly lightheaded or if your vision goes roy, sit or lie down at once. Don't drive or operate machinery until the symptoms are under control. Return or call the doctor if you develop fainting or severe dizziness, severe weakness, problems with vision, chest pain, shortness of breath, fever, or confusion. Kidney Function Abnormality, mild Your evaluation has shown a mild abnormality of your kidney function. An abnormal kidney function test can be caused by dehydration, acute kidney damage, blood vessel disease (such as with diabetes or chronic high blood pressure), or just old age. If the abnormality is caused by an acute disease, it may reverse completely. Have a repeat test. If it's normal, don't worry about your kidneys. If you have a chronic kidney problem, you must be careful with medicines and medical tests. Be sure any doctor who prescribes medicine or orders tests knows that your kidney tests have been abnormal. Some medicines must have the dose reduced, other medicines must be avoided. If the doctor has recommended further workup, be sure to follow up as instructed. Call us if you have new flank pain, vomiting, confusion, or if you're unable to urinate. Stop taking your blood pressure medicines, the clonidine and the lisinopril. Make an appointment to follow-up to see Dr. Juan Molina next week to review your labs and your medications to decide if you should resume taking those medicines. FOLLOW-UP CARE: If you have been referred to a physician for follow-up care, call the physicians office for an appointment as you were instructed or within the next two days. If you experience worsening or a significant change in your symptoms, notify the physician immediately or return to the Emergency Department at any time for re-evaluation. Referrals: ROSALINA PARRA MD [Primary Care Provider] - Follow up as needed
[2019-04-07 11:35] VITALS: BP 89/63
== END 2019-04-07 11:54 | disposition home or self-care (01) ==
LOC: ER 09:01
DX: N28.9 Disorder of kidney and ureter, unspecified (principal); I95.9 Hypotension, unspecified; R29.6 Repeated falls; F17.200 Nicotine dependence, unspecified, uncomplicated; I10 Essential (primary) hypertension; F43.10 Post-traumatic stress disorder, unspecified; F20.9 Schizophrenia, unspecified; F31.9 Bipolar disorder, unspecified; Z79.899 Other long term (current) drug therapy
CPT/HCPCS: 36415; 80053; 80307; 81001; 83690; 85025; 87086; 99284

== ENCOUNTER 2019-05-28 17:11 | Emergency (ER) | payer MEDICAID ==
[2019-05-28 17:40] LABS: ABSOLUTE EOSINOPHILS # (AUTO) 0.1 10^3/uL (0.0-0.6); ABSOLUTE LYMPHOCYTES (AUTO) 3.4 10^3/uL (0.5-4.7); ABSOLUTE MONOCYTES (AUTO) 0.7 10^3/uL (0.1-1.4); ABSOLUTE NEUT (AUTO) 6.5 10^3/uL (1.7-8.2); BASOPHILS % (AUTO) 0.3 % (0-2); HEMOGLOBIN 13.7 g/dL (13.5-17.0); LYMPHOCYTES % (AUTO) 31.5 % (13-45); MEAN CORPUSCULAR HEMOGLOBIN 27.8 pg (27.0-33.4); MEAN CORPUSCULAR HGB CONC 32.7 g/dL (32.0-36.0); MEAN CORPUSCULAR VOLUME 85 fl (80-97); MONOCYTES % (AUTO) 6.4 % (3-13); PLATELET COUNT 259 10^3/uL (150-450); RED BLOOD COUNT 4.94 10^6/uL (4.35-5.55); RED CELL DISTRIBUTION WIDTH 15.3 % (11.5-14.0); SEGMENTED NEUTROPHILS % (AUTO) 60.8 % (42-78); TOTAL CELLS COUNTED % (AUTO) 100 %; WHITE BLOOD COUNT 10.7 10^3/uL (4.0-10.5)
[2019-05-28 17:40] LABS: VENOUS BLOOD BASE EXCESS -3.5 mmol/L; VENOUS BLOOD HCO3 22.7 mmol/L (20-32); VENOUS BLOOD PCO2 45.9 mmHg (35-63); VENOUS BLOOD PH 7.31 (7.30-7.42)
[2019-05-28 17:48] LABS: INTERNATIONAL RATION (INR) 1.06; PROTHROMBIN TIME 13.8 SEC (11.4-15.4)
[2019-05-28 18:03] LABS: ALANINE AMINOTRANSFERASE 37 U/L (21-72); ALKALINE PHOSPHATASE 61 U/L (38-126); ANION GAP 10 (5-19); ASPARTATE AMINO TRANSFERASE 27 U/L (17-59); BILIRUBIN,DIRECT 0.3 mg/dL (0.0-0.4); BILIRUBIN,TOTAL 0.4 mg/dL (0.2-1.3); BLOOD UREA NITROGEN 6 mg/dL (7-20); CALCIUM 8.3 mg/dL (8.4-10.2); CARBON DIOXIDE 22 mmol/L (22-30); CHLORIDE 107 mmol/L (98-107); GLUCOSE 96 mg/dL (75-110); POTASSIUM 3.9 mmol/L (3.6-5.0); SODIUM 138.8 mmol/L (137-145); TOTAL PROTEIN 5.2 g/dL (6.3-8.2)
[2019-05-28] MEDS ORDERED: NORMAL SALINE 1000 ML 1,000 ML IV ONE (18:05)
--- NOTE | 2019-05-28 18:39 | RADIOLOGY REPORT (SQ) ---
EXAM DESCRIPTION: CT HEAD WITHOUT COMPLETED DATE/TIME: 05/28/2019 6:22 pm REASON FOR STUDY: bed 2 new onset seizures COMPARISON: 05/25/2015 TECHNIQUE: Axial images acquired through the brain without intravenous contrast. Images reviewed wit h bone, brain and subdural windows. Images stored on PACS. All CT scanners at this facility use dose modulation, iterative reconstruction, and/or weight based d osing when appropriate to reduce radiation dose to as low as reasonably achievable (ALARA). [facility]: Dose Right [facility]: CareDose [facility]: Dose Right [facility]: Teradose 4D [facility]: Smart [place] RADIATION DOSE: CT Rad equipment meets quality standard of care and radiation dose reduction techniq ues were employed. CTDIvol: 53.2 mGy. DLP: 1017 mGy-cm.. LIMITATIONS: None. FINDINGS: VENTRICLES: Normal size and contour. CEREBRUM: No masses. No hemorrhage. No midline shift. Age appropriate white matter. No evidence for a cute infarction. CEREBELLUM: No masses. No hemorrhage. No alteration of density. No evidence for acute infarction. EXTRA-AXIAL SPACES: No fluid collections. ORBITS AND GLOBE: No intra- or extraconal masses. Normal contour of globe without masses. CALVARIUM: No fracture. PARANASAL SINUSES: No fluid or mucosal thickening. SOFT TISSUES: No mass or hematoma. OTHER: No other significant finding. IMPRESSION: NO ACUTE INTRACRANIAL FINDINGS. EVIDENCE OF ACUTE STROKE: NO. TECHNICAL DOCUMENTATION: JOB ID: [id number] Quality ID # [id number]: Final reports with documentation of one or more dose reduction techniques (e.g., Au tomated exposure control, adjustment of the mA and/or kV according to patient size, use of iterative reconstruction technique) 2010 [employer]- All Rights Reserved Reading location - IP/workstation name: [email or web address]
[2019-05-28] MEDS ORDERED: PHENYTOIN SODIUM INJ/PF 250 MG/5 ML SDV IV ONE ×2 (19:23)
--- NOTE | 2019-05-28 19:26 | EKG REPORT ---
SEVERITY:- BORDERLINE ECG - SINUS RHYTHM BORDERLINE T ABNORMALITIES, INFERIOR LEADS : Confirmed by: Annamarie Rg MD 28-May-2019 19:25:29
[2019-05-28 20:28] LABS: APPEARANCE,URINE CLEAR; BILIRUBIN,URINE NEGATIVE (NEGATIVE); COLOR,URINE YELLOW; GLUCOSE, URINE NEGATIVE (NEGATIVE); KETONES,URINE NEGATIVE (NEGATIVE); LEUKOCYTE ESTERASE,URINE NEGATIVE (NEGATIVE); NITRITE,URINE NEGATIVE (NEGATIVE); PROTEIN,URINE NEGATIVE (NEGATIVE)
[2019-05-28 20:31] LABS: URINE SPECIFIC GRAVITY 1.008
--- NOTE | 2019-05-28 20:34 | ER Document Report ---
Entered by MARY DIALLO SCRIBE 05/28/19 1805 Acting as scribe for:SULTANA MONTANEZ MD ED Seizure - General Chief Complaint: Probable Seizure Stated Complaint: ALTERED MENTAL STATUS Time Seen by Provider: 05/28/19 17:56 Primary Care Provider: ROSALINA PARRA MD [Primary Care Provider] - Follow up as needed Information source: Patient Notes: 24-year-old male that presents to the emergency department today with complaints of a possible seizure that occurred prior to arrival. Dad at bedside states that he turned around and noticed the patient's arm flailing in the air in the backseat of the car. Patient has not had any seizures before according to fami ly however when initial history is being given, there is no family present, and the patient states he has been having seizures recently which have become more frequent. According to family there were "lesions on the brain" found in an outpatient MRI. 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 Psychiatric Medical History: Reports: Hx Attention Deficit Hyperactivity Disorder, Hx Bipolar Disorder, Hx Depression, Hx Post Traumatic Stress Disorder, Hx Schizophrenia Past Surgical History: Reports: Other - Eye surgery - Immunizations Immunizations up to date: No Hx Diphtheria, Pertussis, Tetanus Vaccination: Yes Review of Systems - Review of Systems Constitutional: No symptoms reported EENT: No symptoms reported Cardiovascular: No symptoms reported Respiratory: No symptoms reported Gastrointestinal: No symptoms reported Genitourinary: No symptoms reported Male Genitourinary: No symptoms reported Musculoskeletal: No symptoms reported Skin: No symptoms reported Hematologic/Lymphatic: No symptoms reported Neurological/Psychological: See HPI, Seizure -: Yes All other systems reviewed and negative Physical Exam - Vital signs Vitals: Pulse Ox 98 05/28/19 17:16 - Notes Notes: Physical Exam: General: Alert, appears well. HEENT: Normocephalic. Atraumatic. PERRL. Extraocular movements intact. Oropharynx clear. No tongue chewing/lacerations. Neck: Supple. Non-tender. Respiratory: No respiratory distress. Clear and equal breath sounds bilaterally. Cardiovascular: Regular rate and rhythm. Abdominal: Normal Inspection. Non-tender. No distension. Normal Bowel Sounds. Back: Non-tender. No deformity or step off. Extremities: Moves all four extremities. Upper extremities: Normal inspection. Normal ROM. Lower extremities: Normal inspection. No edema. Normal ROM. Neurological: Cognition at baseline. AAOx4. Normal speech. Psychological: Normal affect. Normal Mood. Skin: Warm. Dry. Normal color. Course - Re-evaluation Re-evalutation: 05/28/19 18:33 Patient's mother brought in the report on his brain MRI done on 05/11/2019. It showed no acute intracranial abnormality. There was some scattered nonspecific T2 hyperintensities which are unusual for the patient's age and could represent accelerated chronic small vessel ischemic white matter disease versus demyelinating disease. Again he does have an appointment with a neurologist in [place] on 06/15/2019. - Vital Signs Vital signs: Temp Pulse Resp BP Pulse Ox 97.6 F 17 125/84 99 05/28/19 17:38 05/28/19 19:00 05/28/19 19:00 05/28/19 19:00 - Laboratory Result Diagrams: 05/28/19 16:48 05/28/19 17:24 Laboratory results interpreted by me: 05/28/19 05/28/19 05/28/19 16:48 17:24 17:24 WBC 10.7 H RDW 15.3 H BUN 6 L Lactic Acid 4.1 H Calcium 8.3 L Total Protein 5.2 L Albumin 3.0 L - Diagnostic Test Radiology reviewed: Image reviewed, Reports reviewed - Head CT does not show any acute or chronic abnormalities. - EKG Interpretation by [facility] EKG shows normal: Sinus rhythm, [place], Intervals. abnormal: QRS Complexes - Nondiagnostic inferior and agusto-lateral Q's, ST-T Waves - Borderline inferior T abnormalities Rate: Normal - 85 Rhythm: NSR Discharge - Discharge Clinical Impression: Generalized seizure Disposition: HOME, SELF-CARE Additional Instructions: Seizure You have had a seizure. Seizure disorders (epilepsy) of one sort or another affect about one out of 50 people. The seizure occurs because of abnormal electrical activity in the brain. Seizures may be due to drugs and alcohol, strokes, brain injury, or infection. In the most common form of epilepsy, no cause can be found. You will require further evaluation to determine the cause of your seizure, and to determine whether anti-seizure medication is required. This follow-up testing is important, so please call us if you encounter problems with scheduling of tests or appointments. YOU SHOULD NOT DRIVE until released to do so by your physician. The law requires that seizures be reported to the pile driver operator helper's license bureau--a seizure while driving could be catastrophic. Call the doctor if seizures recur, or if you develop new symptoms such as fever, severe headache, stiff neck, confusion or increasing sleepiness, weakness or numbness, or visual problems. Start taking the Dilantin as prescribed tomorrow. Call the neurologist you have an appointment with in [place], and let them know that you had a generalized seizure and started on Dilantin to prevent further seizures. RETURN TO THE EMERGENCY ROOM IF ANY NEW OR WORSENING SYMPTOMS. Prescriptions: Phenytoin Sodium Extended [Dilantin 100 mg Capsule.er] 300 mg PO QHS #100 capsule Referrals: ROSALINA PARRA MD [Primary Care Provider] - Follow up as needed Scribe Attestation: 05/28/19 20:14 I personally performed the services described in the documentation, reviewed and edited the documentation which was dictated to the scribe in my presence, and it accurately records my words and actions. I personally performed the services described in the documentation, reviewed and edited the documentation which was dictated to the scribe in my presence, and it accurately records my words and actions.
[2019-05-28 20:38] LABS: URINE AMPHETAMINES SCREEN NEGATIVE; URINE BARBITURATES SCREEN NEGATIVE; URINE BENZODIAZEPINES SCREEN NEGATIVE; URINE COCAINE SCREEN NEGATIVE; URINE MARIJUANA (THC) SCREEN NEGATIVE; URINE METHADONE SCREEN NEGATIVE; URINE PHENCYCLIDINE SCREEN NEGATIVE
[2019-05-28 21:21] VITALS: BP 110/71
== END 2019-05-28 21:58 | disposition home or self-care (01) ==
LOC: ER 17:11
DX: R56.9 Unspecified convulsions (principal); R94.31 Abnormal electrocardiogram [ECG] [EKG]; F17.290 Nicotine dependence, other tobacco product, uncomplicated; I10 Essential (primary) hypertension
CPT/HCPCS: 93005; 99285; 96361; 96365; 36415; 87040; 87086; 82962; 85025; 85610; 87077; 87088; 80053; 81001; 87186; 80307; 82803; 83605; 70450; 93010; J1165; J7030